=== PATIENT | female | born 1940 | race Caucasian/White ===

== ENCOUNTER 2022-07-15 10:58 | Emergency (ER) | payer MEDICARE, OTHER ==
[~2022-07-15] VITALS: Ht 157.5 cm; Wt 54.4 kg
--- NOTE | 2022-07-15 11:17 | NUR ---
BIBFAMILY C/O LEFT LEG PAIN SINCE SATURDAY AFTER A PLANE RIDE FROM [place] TO [place]. NO REDNESS OR SWELLING NOTED. PT DENIES SHORTNESS OF BREATH, VITALS ARE WITHIN NORMAL LMITS. AWAITING MD ORDERS.
--- NOTE | 2022-07-15 12:02 | NUR ---
PT RETURNED FROM RADIOLOGY
--- NOTE | 2022-07-15 13:27 | NUR ---
US TECH AT BEDSIDE FOR EVAL
[2022-07-15] MEDS ORDERED: IBUP-1953 PO (15:12)
[2022-07-15] MEDS ORDERED: CYCL5TAB PO (15:12)
--- NOTE | 2022-07-15 15:47 | NUR ---
Patient discharged to home in stable condition. Written and verbal after care instructions given. Patient verbalizes understanding of instruction.
[2022-07-15 15:49] VITALS: BP 164/82
== END 2022-07-15 15:49 | disposition home or self-care (01) ==
LOC: ER 11:02
DX: M79.605 Pain in left leg (principal); M54.50 Low back pain, unspecified; I10 Essential (primary) hypertension
CPT/HCPCS: 72110-TC; 73552; 93971-TC